=== PATIENT | female | born 1965 | race Caucasian/White ===

== ENCOUNTER 2017-04-02 08:26 | Emergency (ER) | payer OTHER ==
[~2017-04-02] VITALS: Ht 160 cm; Wt 55.0 kg
[~2017-04-02 08:26] MED LIST: Z.0.NO CURRENT MEDS
[2017-04-02 08:35] VITALS: BP 193/86; PULSE 81; RESP 20; TEMP 98.2; O2SAT 99
[2017-04-02] MEDS ORDERED: SODIUM CHLORIDE 0.9% FLUSH 10 ML FLUSH IVF PRN (08:45)
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
[2017-04-02] MEDS ORDERED: ONDANSETRON HCL 4 MG/2 ML VIAL IV PUSH ONE (09:00)
[2017-04-02] MEDS ORDERED: MORPHINE SULFATE 8 MG/ML INJ IV PUSH ONE ×2 (09:00→12:00)
[2017-04-02] MEDS ORDERED: SODIUM CHLOR 0.9% 1000 ML INJ 1,000 ML IV ONE (09:00)
[2017-04-02 09:03] VITALS: O2SAT 98
[2017-04-02 09:10] LABS: I-STAT SODIUM 140 MMOL/L (138-146)
[2017-04-02 09:11] LABS: AUTOMATED NEUTROPHIL # 8.2 TH/MM3 (1.8-7.7); BASOPHIL # 0.1 TH/MM3 (0-0.2); BASOPHIL % 0.6 % (0.0-2.0); EOSINOPHIL # 0.2 TH/MM3 (0-0.4); EOSINOPHIL % 1.9 % (0.0-4.0); HEMATOCRIT 42.6 % (35.0-46.0); HEMO FLAGS DIFF FINAL; I-STAT POTASSIUM 3.7 MMOL/L (3.5-4.9); LYMPH % 17.5 % (9.0-44.0); LYMPHOCYTE # 1.9 TH/MM3 (1.0-4.8); MEAN CORPUSCULAR HGB CONC 33.3 % (32.0-36.0); MONO % 5.9 % (0.0-8.0); NEUT % 74.1 % (16.0-70.0); PLATELET COUNT 317 TH/MM3 (150-450); RED BLOOD COUNT 4.44 MIL/MM3 (4.00-5.30); RED CELL DISTRIBUTION WIDTH 12.5 % (11.6-17.2); WHITE BLOOD COUNT 11.1 TH/MM3 (4.0-11.0)
[2017-04-02 09:23] LABS: APTT (PATIENT) 26.2 SEC (24.3-30.1); PROTHROMBIN TIME - PATIENT 10.5 SEC (9.8-11.6)
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
[2017-04-02 10:05] VITALS: BP 149/83; PULSE 90; RESP 20
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
[2017-04-02] MEDS ORDERED: IOHEXOL 350 MG/ML 10 ML VIAL (for RAD DIAG) IV ONE (10:38)
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
[2017-04-02 10:50] LABS: AMPHETAMINE, URINE NEG (NEG); BARBITURATES, URINE NEG (NEG); COCAINE, URINE NEG (NEG)
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
[2017-04-02] MEDS ORDERED: MORPHINE SULFATE 4 MG/ML INJ IV PUSH ONE (11:45)
[2017-04-02] MEDS ORDERED: NORC5TAB PO (12:22)
[2017-04-03] MEDS ORDERED: ROBA500T PO (09:49)
== END 2017-04-02 13:03 | disposition home or self-care (01) ==
LOC: NEPE 08:26
DX: S12.600A Unspecified displaced fracture of seventh cervical vertebra, initial encounter for closed fracture (principal); M54.2 Cervicalgia; G89.29 Other chronic pain; M50.323 Other cervical disc degeneration at C6-C7 level; F17.200 Nicotine dependence, unspecified, uncomplicated; Z79.899 Other long term (current) drug therapy; V43.52XA Car driver injured in collision with other type car in traffic accident, initial encounter
CPT/HCPCS: 70450; 71260; 72125; 72128; 72131; 73080; 73564; 74177; 80307; 82435; 82565; 82947; 84132; 84295; 84520; 85025; 85610; 85730; 86850; 86900; 86901; 96361; 96374; 99285; J2270; J2405; J7030; L0150; L0172; Q9967

== ENCOUNTER 2017-04-03 09:08 | Emergency (ER) | payer OTHER ==
[~2017-04-03] VITALS: Ht 162.6 cm; Wt 52.0 kg
[~2017-04-03 09:08] MED LIST changes: +NORC5TAB PO; -Z.0.NO CURRENT MEDS
[2017-04-03 09:09] VITALS: BP 167/114; PULSE 100; RESP 18; TEMP 98.2; O2SAT 98
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
[2017-04-03] MEDS ORDERED: ROBA500T PO (09:49)
[2017-04-03] MEDS ORDERED: ORPHENADRINE INJ 60 MG/2 ML AMP IM ONE (10:00)
== END 2017-04-03 10:19 | disposition home or self-care (01) ==
LOC: NEPK 09:08
DX: M54.2 Cervicalgia (principal); G89.29 Other chronic pain
CPT/HCPCS: 96372; 99284; J2360